=== PATIENT | female | born 1995 | race Caucasian/White ===

== ENCOUNTER 2016-12-30 17:57 | Emergency (ER) | payer OTHER ==
[~2016-12-30] VITALS: Ht 157.5 cm; Wt 45.5 kg
[~2016-12-30 17:57] MED LIST: VITAMINS
[2016-12-30 18:01] VITALS: BP 145/94; RESP 10; O2SAT 100
== END 2016-12-30 19:32 | disposition left against medical advice (07) ==
LOC: SED 17:57
DX: Z53.21 Procedure and treatment not carried out due to patient leaving prior to being seen by health care provider (principal)